=== PATIENT | female | born 1965 | race Caucasian/White ===

== ENCOUNTER 2016-06-24 16:45 | Inpatient (IN) | payer BC, OTHER ==
[2016-06-24] MEDS ORDERED: ONDANSETRON 4 MG/2 ML VIAL IVP ONE (17:08)
[2016-06-24] MEDS ORDERED: Sodium Chloride 0.9% 1,000 ML PRIMARY IV ONE (17:08)
[2016-06-24] MEDS ORDERED: NORMAL SALINE 10 ML SYRINGE FLUSH IVP PRN (17:08)
[2016-06-24] MEDS ORDERED: Sodium Chloride 0.9% 1,000 ML, Magnesium Sulfate 2gm (Premix) 50 ML with Multivitamin I... IV ONE ×5 (17:11)
[2016-06-24] MEDS ORDERED: Pantoprazole Inj 40 MG in Normal Saline Flush 10 ML IVP ONE (17:12)
--- NOTE | 2016-06-24 17:22 | EKG ---
[address] [place] [address] Measurements Intervals [place] Rate: 81 P: 127 IL: 194 QRS: 22 QRSD: 88 T: 165 QT: 375 QTc: 413 Interpretive Statements SINUS RHYTHM POSSIBLE LATERAL MYOCARDIAL INFARCTION [30 ms Q WAVE IN I/aVL/V5/V6], OF INDETERMINATE AGE PROBABLE INFERIOR MYOCARDIAL INFARCTION [35 ms Q WAVE IN II/aVF], PROBABLY OLD No previous ECG available for comparison Electronically Signed On 06-25-16 13:44:22 [facility] by Alexis Michelle [email or web address]
[2016-06-24] MEDS ORDERED: Magnesium Sulfate 2gm (Premix) 50 ML IV ONE (17:27)
[2016-06-24] MEDS ORDERED: FOLIC ACID 5 MG/1 ML - 10 ML ONE (17:27)
[2016-06-24] MEDS ORDERED: ONDANSETRON 4 MG/2 ML VIAL ONE (17:27)
[2016-06-24] MEDS ORDERED: Sodium Chloride 0.9% 1,000 ML ONE ×2 (17:27→17:45)
[2016-06-24] MEDS ORDERED: Dexamethasone Oral Soln 10 MG/5 ML SOLN PO ONE (17:27)
[2016-06-24] MEDS ORDERED: THIAMINE 100 MG/1 ML - 2 ML ONE (17:27)
[2016-06-24] MEDS ORDERED: PANTOPRAZOLE IV 40 MG VIAL ONE (17:27)
[2016-06-24] MEDS ORDERED: MVI, ADULT NO.1 WITH VIT K 10 ML VIAL IV ONE (17:28)
[2016-06-24 17:37] LABS: MEAN PLATELET VOLUME 8.3 FL (7.4-12.2)
[2016-06-24 17:39] LABS: BASOPHILS # (AUTO) 0.11 10*3/UL; BASOPHILS % (AUTO) 2.7 % (0-1); EOSINOPHILS % (AUTO) 0 % (0-8); HEMATOCRIT 40.7 % (37.0-47.0); HEMOGLOBIN 13.8 g/dL (12.0-16.0); IMM GRAN % (AUTO) 0.2 % (0-5); IMM GRAN# (AUTO) 0.01 10*3/UL; LYMPHOCYTES # (AUTO) 1.18 10*3/uL; LYMPHOCYTES % (AUTO) 29.1 % (10-50); MEAN CORPUSCULAR HEMOGLOBIN 33.3 PG (27-31); MEAN CORPUSCULAR HGB CONC 33.9 g/dL (33-37); MONOCYTES # (AUTO) 0.25 10*3/UL (0.3-0.8); MONOCYTES % (AUTO) 6.2 % (5-15); NEUTROPHILS # (AUTO) 2.51 10*3/UL; NEUTROPHILS % (AUTO) 61.8 % (50-80); RDW COEFFICIENT OF VARIATION 15.4 % (11.5-14.5); RED BLOOD COUNT 4.15 10^6/uL (4.20-5.40); WHITE BLOOD COUNT 4.06 10^3/uL (4.8-10.8)
[2016-06-24 17:40] LABS: AMYLASE 81 U/L (30-110)
[2016-06-24 17:41] LABS: AMMONIA < 9 UMOL/L (9.0-33.0)
[2016-06-24 17:47] LABS: PROTHROMBIN TIME 10.9 secs (9.7-11.4)
[2016-06-24 17:52] LABS: ASPARTATE AMINO TRANSFERASE 192 IU/L (8-39); BILIRUBIN,TOTAL 0.7 mg/dL (0.3-1.2); BLOOD UREA NITROGEN 9 mg/dL (7-22); CALCIUM 8.2 mg/dL (8.7-10.7); CHLORIDE 103 meq/L (98-112); CREATININE 0.6 mg/dL (0.50-1.20); EST GLOMERULAR FILTRATION > 60 (>60 ml/min/1.73m(2)); GLUCOSE 75 mg/dL (78-110); MAGNESIUM 1.8 mg/dL (1.6-2.4); POTASSIUM 3.4 meq/L (3.8-5.2); SODIUM 147 meq/L (135-145)
[2016-06-24 18:04] LABS: PLATELET MORPHOLOGY COMMENT SEE COMMENTS (NORM)
[2016-06-24 18:06] LABS: SERUM ALCOHOL 466 mg/dL (0-10)
--- NOTE | 2016-06-24 18:49 | PDOC ---
General Adult HPI - General Chief Complaint: Fall Stated Complaint: slurred speech may have fallen Date Seen by Provider: 06/24/16 Time Seen by Provider: 16:50 Source: POSITIVE: Patient, Spouse Exam Limitations: POSITIVE: No limitations Nurse's Notes Reviewed & Considered: Yes - History of Present Illness Initial Comment: The patient is a 50-year-old female who is brought to the emergency department by her significant other with concerns about slurred speech and balance difficulties. She does have a history of alcohol abuse and by her account has been drinking approximately a pint per day. She states that she has not had anything to drink over the past 5 days and has been taking her 's naltrexone to help with alcohol cravings. Her reports that when he came home he found her lying on a bench in the garage where he is seen she might of been smoking. He is unsure whether she fell. The patient denies falling although she does not seem clear about this. Her became concerned when it was apparent that she was having balance issues and slurred speech. She has obvious bruising to her left arm, and left leg. By the patient 's account she has had nausea and vomiting as well as some epigastric abdominal pain for the past couple of weeks. She states she has had a difficult time eating or drinking anything and states that she does not have an appetite. She admits to having a poor appetite in general as well as poor food intake when she is drinking. She also has been complaining of pain in the right scapular region for a couple of weeks. She denies any current headache or chest pain. She does have upper abdominal pain and nausea. By her account she was seen in the clinic several days ago and diagnosed with a "stomach flu". She denies any blood in her emesis or stool and denies black stool. She has been having diarrhea in addition to nausea and vomiting. Have you received a tetanus shot in the past 10 years?: Unknown - Patient Home Medications Home Medications: Home Medications Clonazepam 1 tab PO BID tab 10/26/15 Bupropion HCl [Wellbutrin Xl] 1 tab PO DAILY tab 12/01/15 Naltrexone HCl 0.5 tab PO DAILY 06/24/16 - Patient Allergies Allergies/Adverse Reactions: Allergies Allergy/AdvReac Type Severity Reaction Status Date / Time Influenza Virus Vaccines Allergy Severe NOT Verified 06/24/16 21:06 APPLICABLE acetaminophen [From Tylenol] Allergy Intermediate RASH Verified 06/24/16 21:06 banana Allergy NOT Verified 06/24/16 21:06 APPLICABLE chicken derived Allergy NOT Verified 06/24/16 21:06 APPLICABLE corn Allergy NOT Verified 06/24/16 21:06 APPLICABLE egg Allergy NOT Verified 06/24/16 21:06 APPLICABLE garlic Allergy NOT Verified 06/24/16 21:06 APPLICABLE kiwi Allergy NOT Verified 06/24/16 21:06 APPLICABLE oats Allergy NOT Verified 06/24/16 21:06 APPLICABLE wheat Allergy NOT Verified 06/24/16 21:06 APPLICABLE Past Medical History - heen HEENT History: Denies History Cardiovascular History: Arrhythmia, Other (please comment) Additional Cardiovasular History: cardiac ablation Respiratory History: Other (please comment) Additional Respiratory History: smoker Gastrointestinal History: Denies History Genitourinary History: Denies History Endocrine History: Other (please comment) Additional Endocrine History: hypoglycemia Musculoskeletal History: Other (please comment) Additional Musculoskeletal History: Back surgery Neurological History: Denies History Blood Disorders: Denies History Psychiatric History: Depression, Anxiety Disorders, Substance Abuse Additional Psychiatric History: alcoholism History of Sexually Transmitted Diseases: No Cancer History: Denies History In Past Year Been Physically Harmed or Verbally Threatened: No History of MDRO: No History of Other Communicable Diseases: No Tobacco Use: Current Every Day Smoker Alcohol Use: Heavy How much alcohol do you normally drink a day?: 1 pint hard liquor "every 2-3 days" Substance Use Type: Marijuana Previous Surgical History: Yes Type / Date of Surgery: CSECTION. C5-7 FUSION WITH C7 FX REPAIR AND FUSED TO T1 Anesthesia Reactions: No Significant Family History: No pertinent family hx Past Medical History Reviewed: Reviewed - No Changes ROS - Limitations ROS Limitations: No Limitations Constitution: DENIES: Chills, Fever Cardiovascular: DENIES: Chest Pain, Heart Racing, Heart Palpitations, Edema Respiratory: DENIES: Hurts To Breathe, Shortness Of Breath Neurological: REPORTS: Confusion, Dizziness, Difficulty Walking. DENIES: Numbness, Seizure Activity, Weakness Gastrointestinal: REPORTS: Abdominal Pain, Nausea, Vomitting, Diarrhea. DENIES : Black Stools, Bloody Stools Genitourinary: REPORTS: Denies Symptoms Eyes: REPORTS: Denies Symptoms, Vision Changes (Some blurred vision) ENT: REPORTS: Denies Symptoms General Adult Exam - General Appearance General Appearance: POSITIVE: Alert, Cooperative, No Acute Distress - HEENT HEENT: POSITIVE: Head Inspection Nml, Eyes Inspection Nml, Ears Inspection Nml, Nose Inspection Nml, Pharynx Inspect. Nml, Dry Mucous Membranes - Neck Neck: POSITIVE: Normal Inspection. NEGATIVE: Lymphadenopathy - Respiratory Respiratory: POSITIVE: No Respiratory Distress, Breath Sounds Normal - Cardiovascular Cardiovascular: POSITIVE: Regular Rate & Rhythm, No Murmur Peripheral Pulses: Dorsalis-pedis (R): 2+, Dorsalis-pedis (L): 2+ - Abdomen Abdomen: Soft: (All Quadrants), Normal Bowel Sounds: (All Quadrants), No Guarding: (All Quadrants), No Rebound: (All Quadrants), No Palpabale Mass: (All Quadrants), No Distention: (All Quadrants) Additional Abdominal Details: She is tender in the epigastric region without guarding or rebound tenderness. - Back Back: POSITIVE: Normal Inspection - Skin Skin: POSITIVE: Normal Color - Extremities Additional Extremities Details: She does have large bruises noted on her left upper arm and left upper leg, she has tenderness to the posterior aspect of her right shoulder and pain with range of motion of the right shoulder - Neurological / Psychological Neurological: POSITIVE: Oriented X3, Motor Normal, Sensation Normal, Other (No focal neurologic deficits) General Adult Progress - Results Reviewed by me Xrays/CTs/US Reviewed by me: Yes Discussed with Radiologist: Yes Radiology Findings: CT scan of her head reveals no acute intracranial findings per radiologist. X-ray of the right shoulder is unremarkable except for what appears to be calcification in the biceps tendon. Chest x-ray shows no acute abnormalities. Lab Results:: Laboratory Results 06/24/16 Range/Units 17:27 WBC 4.06 L (4.8-10.8) 10^3/uL RBC 4.15 L (4.20-5.40) 10^6/uL Hgb 13.8 (12.0-16.0) g/dL Hct 40.7 (37.0-47.0) % MCV 98.1 (81-99) FL MCH 33.3 H (27-31) PG MCHC 33.9 (33-37) g/dL RDW Std Deviation 54.5 H (39-50) fL RDW Coeff of Deshawn 15.4 H (11.5-14.5) % Plt Count 90 L (140-350) 10*3/uL MPV 8.3 (7.4-12.2) FL Immature Gran % (Auto) 0.2 (0-5) % Neut % (Auto) 61.8 (50-80) % Lymph % (Auto) 29.1 (10-50) % [place] % (Auto) 6.2 (5-15) % Eos % (Auto) 0 (0-8) % Baso % (Auto) 2.7 H (0-1) % Immature Gran # (Auto) 0.01 10*3/UL Neut # (Auto) 2.51 10*3/UL Lymph # (Auto) 1.18 10*3/uL [place] # (Auto) 0.25 L (0.3-0.8) 10*3/UL Eos # (Auto) 0 10*3/UL Baso # (Auto) 0.11 10*3/UL WBC Morphology Comment Normal morphology (NORM) Plt Morphology Comment See comments (NORM) RBC Morph Comment See comments (NORM) PT 10.9 (9.7-11.4) secs INR 1.06 (0.00-5.90) N/A Sodium 147 H (135-145) meq/L Potassium 3.4 L (3.8-5.2) meq/L Chloride 103 (98-112) meq/L Carbon Dioxide 25 (23-33) meq/L Anion Gap 19 (5-20) BUN 9 (7-22) mg/dL Creatinine 0.6 (0.50-1.20) mg/dL Estimated GFR > 60 (>60 ml/min/1.73m(2)) BUN/Creatinine Ratio 15.00 (6-20) Glucose 75 L (78-110) mg/dL Calculated Osmolality 301.0 H (267-292) mOsm/kg Calcium 8.2 L (8.7-10.7) mg/dL Magnesium 1.8 (1.6-2.4) mg/dL Total Bilirubin 0.7 (0.3-1.2) mg/dL AST 192 H (8-39) IU/L ALT 74 H (9-52) IU/L Alkaline Phosphatase 117 (38-126) IU/L Ammonia < 9 L (9.0-33.0) UMOL/L Troponin I < 0.012 (< 0.040) ng/mL Total Protein 7.0 (6.1-8.0) g/dL Albumin 4.0 (3.5-4.8) g/dL Globulin 3.0 (2.50-4.10) g/dL Albumin/Globulin Ratio 1.30 (1.3-2.0) mg/g Amylase 81 (30-110) U/L Lipase 301 H (23-300) IU/L Serum Alcohol 466 H* (0-10) mg/dL EKG Interpreted/Reviewed By Me:: Yes EKG Interpretation:: POSITIVE: Normal Sinus Rhythm, Normal Rate, Other (No previous EKGs available for comparison) - Patient's Progress MDM / ED Course: An IV was established and she did receive a banana bag. In addition she received Protonix 40 mg IV and Zofran 4 mg IV. Because of her recent falls and complaints of slurred speech and balance difficulty as well as reportedly not drinking for the past 5 days I did order a CT scan of her head. This was found to be negative for any acute intracranial abnormality per radiologist. Her blood alcohol was significantly elevated at 466. In addition her lipase was elevated. At this point she likely has alcoholic pancreatitis causing her epigastric abdominal pain, nausea and vomiting. These findings were discussed with the patient. At this time she will be admitted. Dr. Hardy has agreed to admit the patient. - Consult Counseled: POSITIVE: Patient, Family, RE: Lab Results, RE: Radiology Results, RE : DX Patient Care Time - Estimated PCT Patient Care Time (In Minutes): 45 Vital Signs - Recent Vital Signs Vital Signs: Vital Signs (Last 8 hours) Temp Pulse Resp BP Pulse Ox 06/24/16 19:45 96.8 F 88 18 123/77 94 - VS Reviewed Vital Signs Reviewed: Yes Discharge Clinical Impression: Thrombocytopenia Pancreatitis Qualifiers: Chronicity: acute Pancreatitis type: alcohol induced Acute pancreatitis complication: no infection or necrosis Qualifier Code: (K85.20) Alcohol induced acute pancreatitis without necrosis or infection Alcohol intoxication Qualifiers: Complication of substance-induced condition: with unspecified complication Qualifier Code: (F10.129) Alcohol abuse with intoxication, unspecified Discharge Disposition: Admit to Inpatient Condition: Stable Date Decision to Admit to Inpatient: 06/24/16 Time Decision to Admit to Inpatient: 19:10
[2016-06-24] MEDS ORDERED: ACETAMINOPHEN 500 MG TABLET PO PRN (20:01)
[2016-06-24] MEDS ORDERED: MAG HYDROX/AL HYDROX/SIMETH 30 ML SUSP PO PRN (20:01)
[2016-06-24] MEDS ORDERED: ONDANSETRON 4 MG/2 ML VIAL IV PRN (20:01)
[2016-06-24] MEDS ORDERED: Loperamide Tab 2 MG TABLET PO PRN (20:01)
[2016-06-24] MEDS ORDERED: MAGNESIUM 400 MG/5 ML - 30 ML (MILK OF MAGNESIA) PO PRN (20:01)
--- NOTE | 2016-06-24 20:26 | PDOC ---
History and Physical - History of Present Illness Date and Time of Service: 06/24/2016, 2024 Chief Complaint: Altered mental status History of Present Illness: This is a 50-year-old female who has had problems with alcohol abuse in the past who was brought in by her today to the emergency room when he found her at home altered and sitting in the garage. He thinks that she may have fallen and she was slurring some of her words. She was brought in for evaluation and her blood alcohol was 466. She complained of nausea and vomiting and back pain yesterday and a lipase was found to be elevated at 301. The patient states to me that she's been drinking a pint of vodka per day although I suspect she's been drinking more. She was under the impression that she asked her to bring her to the emergency room. She did not recall that he found her in an altered state. The patient has been doing intensive outpatient therapy with [facility] since around February. She states that she's had some episodes of alcohol use since she's been in the intensive outpatient program, including over the holidays and currently. She's gone through withdrawals at home but has never been admitted to the hospital for this. She states she drinks because she's angry at some of the staff that she works with at her job. No exacerbating factors were noted other than she continued to drink to a blood alcohol of 466. She did this despite using naltrexone. She missed a depression, has tried Celexa and it doesn't seem to work. She has been on Wellbutrin since October but has not noticed that it helps a lot. She smokes tobacco but denies any other drug use. Past Medical History Medical History: Alcohol abuse Surgical History: 1. . 2. Neck Surgery with hardware present. Pertinent Family History: Further with heart disease and mother with diabetes. Past Social History: Lives in [place], [place]. . Has 5 children, 2 still live at home. 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 Drinks alcohol and smokes tobacco. Tobacco Use: Current Every Day Smoker Do you dip or chew tobacco: No Substance Use Type: Other (please comment) (Patient denied drug use.) Alcohol Use: Heavy Medication / Allergies Home Medications: Home Medications Medication Instructions Recorded Confirmed Type Clonazepam 1 tab PO BID tab 10/26/15 06/24/16 History Bupropion HCl [Wellbutrin Xl] 1 tab PO DAILY tab 12/01/15 06/24/16 History Naltrexone HCl 0.5 tab PO DAILY 06/24/16 06/24/16 History Allergies/Adverse Reactions: Allergies Allergy/AdvReac Type Severity Reaction Status Date / Time Influenza Virus Vaccines Allergy Severe NOT Verified 06/24/16 17:01 APPLICABLE acetaminophen [From Tylenol] Allergy Intermediate RASH Verified 06/24/16 17:01 banana Allergy NOT Verified 06/24/16 17:01 APPLICABLE chicken derived Allergy NOT Verified 06/24/16 17:01 APPLICABLE corn Allergy NOT Verified 06/24/16 17:01 APPLICABLE egg Allergy NOT Verified 06/24/16 17:01 APPLICABLE garlic Allergy NOT Verified 06/24/16 17:01 APPLICABLE kiwi Allergy NOT Verified 06/24/16 17:01 APPLICABLE oats Allergy NOT Verified 06/24/16 17:01 APPLICABLE wheat Allergy NOT Verified 06/24/16 17:01 APPLICABLE Review of Systems - Review of Systems All Systems: Reviewed & No Additional Complaints Except as Stated (I did a 12 point review systems and it was negative other than that discussed in history present illness. There are some exceptions noted below.) - Constitutional Constitutional: REPORTS: Other (Frequent falls in her intoxicated states.) - Integumentary Integumentary: REPORTS: Other (Bruising on arm and leg.) Exam - Vitals Vital Signs: Vital Signs Temperature 96.8 F Temperature Source Temporal Artery Scan Pulse Rate [Pulse Oximeter] 88 Respiratory Rate 18 Blood Pressure [Left Arm] 123/77 Pulse Ox 94 Oxygen Delivery Method Room Air Weight 148 lb 1.6 oz - General General Appearance: POSITIVE: No Acute Distress, Cooperative - Head Head Exam: POSITIVE: Normal Inspection, Normocephalic, Atraumatic - Eye Eye Exam: POSITIVE: No Scleral Icterus - ENT ENT Exam: POSITIVE: Mucous Membranes Dry - Neck Neck Exam: POSITIVE: Normal Inspection, No Tenderness, No Thyromegaly - Respiratory Respiratory Exam: POSITIVE: Clear to Auscultation - Bilaterally, Breathing Non Labored, Normal to Percussion and Palpation - Cardiovascular Cardiovascular Exam: POSITIVE: RRR, No Murmur, No Clicks, No Gallops, No Rubs, No JVD - GI/Abdominal GI/Abdominal Exam: POSITIVE: Normal Bowel Sounds, Non Tender, Non Distended, Soft - Rectal Rectal Exam: POSITIVE: Deferred - External Exam: POSITIVE: Deferred Exam: POSITIVE: Deferred - Extremities Extremities Exam: POSITIVE: No Clubbing Present, No Edema Present, No Cyanosis Present - Back Back Exam: POSITIVE: No CVA Tenderness - Neurological Neurological Exam: POSITIVE: Alert, Oriented x 3, No Facial Droop, Speech Intact / Clear, Moves All Extremities Equally - Psychiatric Psychiatric Exam: POSITIVE: Flat Affect, Depressed - Integumentary Integumentary Exam: POSITIVE: Normal Color, Warm, Dry, Intact Additional Integumentary Exam Details: Ecchymosis on left arm noted. Results - Labs CBC and BMP: 06/24/16 17:27 06/24/16 17:27 Labs - Last 24 Hours: Laboratory Results 06/24/16 Range/Units 17:27 WBC 4.06 L (4.8-10.8) 10^3/uL RBC 4.15 L (4.20-5.40) 10^6/uL Hgb 13.8 (12.0-16.0) g/dL Hct 40.7 (37.0-47.0) % MCV 98.1 (81-99) FL MCH 33.3 H (27-31) PG MCHC 33.9 (33-37) g/dL RDW Std Deviation 54.5 H (39-50) fL RDW Coeff of Deshawn 15.4 H (11.5-14.5) % Plt Count 90 L (140-350) 10*3/uL MPV 8.3 (7.4-12.2) FL Immature Gran % (Auto) 0.2 (0-5) % Neut % (Auto) 61.8 (50-80) % Lymph % (Auto) 29.1 (10-50) % [place] % (Auto) 6.2 (5-15) % Eos % (Auto) 0 (0-8) % Baso % (Auto) 2.7 H (0-1) % Immature Gran # (Auto) 0.01 10*3/UL Neut # (Auto) 2.51 10*3/UL Lymph # (Auto) 1.18 10*3/uL [place] # (Auto) 0.25 L (0.3-0.8) 10*3/UL Eos # (Auto) 0 10*3/UL Baso # (Auto) 0.11 10*3/UL WBC Morphology Comment Normal morphology (NORM) Plt Morphology Comment See comments (NORM) RBC Morph Comment See comments (NORM) PT 10.9 (9.7-11.4) secs INR 1.06 (0.00-5.90) N/A Sodium 147 H (135-145) meq/L Potassium 3.4 L (3.8-5.2) meq/L Chloride 103 (98-112) meq/L Carbon Dioxide 25 (23-33) meq/L Anion Gap 19 (5-20) BUN 9 (7-22) mg/dL Creatinine 0.6 (0.50-1.20) mg/dL Estimated GFR > 60 (>60 ml/min/1.73m(2)) BUN/Creatinine Ratio 15.00 (6-20) Glucose 75 L (78-110) mg/dL Calculated Osmolality 301.0 H (267-292) mOsm/kg Calcium 8.2 L (8.7-10.7) mg/dL Magnesium 1.8 (1.6-2.4) mg/dL Total Bilirubin 0.7 (0.3-1.2) mg/dL AST 192 H (8-39) IU/L ALT 74 H (9-52) IU/L Alkaline Phosphatase 117 (38-126) IU/L Ammonia < 9 L (9.0-33.0) UMOL/L Troponin I < 0.012 (< 0.040) ng/mL Total Protein 7.0 (6.1-8.0) g/dL Albumin 4.0 (3.5-4.8) g/dL Globulin 3.0 (2.50-4.10) g/dL Albumin/Globulin Ratio 1.30 (1.3-2.0) mg/g Amylase 81 (30-110) U/L Lipase 301 H (23-300) IU/L Serum Alcohol 466 H* (0-10) mg/dL - EKG Data -: EKG Interpreted by Me Rate: Normal EKG Shows Normal: Sinus Rhythm - EKG Data EKG Interpretation: Nonspecific ST-T Wave Changes (T-wave inversions in V3.) - Imaging Status: Image Reviewed by Me (Chest x-ray, on my view appears negative for pneumonia or fracture. CT of the head appeared negative for bleed) Assessment and Plan - Patient Problems (1) Pancreatitis Current Visit: Yes Status: Acute Qualifiers: Chronicity: acute Pancreatitis type: alcohol induced Acute pancreatitis complication: no infection or necrosis Qualified Description: Alcohol-induced acute pancreatitis without infection or necrosis Qualifier Code(s): (K85.20) Alcohol induced acute pancreatitis without necrosis or infection (2) Alcohol intoxication Current Visit: Yes Status: Acute Qualifiers: Complication of substance-induced condition: with unspecified complication Qualified Description: Alcoholic intoxication, with unspecified complication Qualifier Code(s): (F10.129) Alcohol abuse with intoxication , unspecified (3) Falls Current Visit: Yes Status: Acute Qualifiers: Encounter type: initial encounter Qualified Description: Fall, initial encounter Qualifier Code(s): (W19.XXXA) Unspecified fall, initial encounter (4) Depression Current Visit: Yes Status: Acute Qualifiers: Depression Type: major depressive disorder Major depression recurrence : single episode Active/Remission status: currently active Major depression episode severity: severe Psychotic features: without psychotic features Qualified Description: Severe single current episode of major depressive disorder, without psychotic features Qualifier Code(s): (F32.2 ) Major depressive disorder, single episode, severe without psychotic features (5) Tobacco abuse Current Visit: Yes Status: Acute (6) Hypokalemia Current Visit: Yes Status: Acute (7) Thrombocytopenia Current Visit: Yes Status: Acute - Assessment / Plan Additional Assessment/Plan Details: Admit the patient CIWA protocol. IV fluids, thiamine replacement, electrolyte replacement Get solutions for life to evaluate but she sounds like she is artery tied into CW cc, and I think in that setting she really should do their inpatient therapy as she is clearly not being compliant with her outpatient plan. Keep nothing by mouth for now although I will let her eat some ice chips. Check labs tomorrow. Overall prognosis is not clear at this point, it really depends on whether she can quit alcohol so that she can avoid complications medically, socially, and personally from this disease process. Although I truly do believe that the patient has some intent here to get better, if she continues down this path, she is likely to develop cirrhosis, other complications as she has thrombocytopenia, elevated liver enzymes, and could very well of alcoholism related diseases should she continued on this process and road. I explained this to her in detail. Plan discussed with patient and she agreed with the therapy.
[2016-06-24] MEDS ORDERED: Potassium Chloride 20 mEq 20 MEQ in Premix 1 BAG IV ONE (20:33)
[2016-06-24] MEDS ORDERED: NICOTINE 14 MG /DAY PATCH TRANSDERM ONE (22:12)
[2016-06-24] MEDS ORDERED: MAGNESIUM OXIDE 400 MG TABLET PO ONE (22:12)
[2016-06-24] MEDS ORDERED: Potassium Chloride 20 mEq 100 ML IV ONE (22:13)
[2016-06-24] MEDS: MAGNESIUM OXIDE 400 MG TABLET PO SCH (22:16)
[2016-06-24] MEDS: NICOTINE 14 MG /DAY PATCH TRANSDERM SCH (22:17)
[2016-06-24] MEDS: NORMAL SALINE 10 ML SYRINGE FLUSH IVP PRN (22:19)
[2016-06-24 23:15] LABS: CANNABINOID SCREEN,URINE NEGATIVE (NEG); COCAINE SCREEN NEGATIVE (NEG); METHAMPHETAMINES SCREEN,URINE NEGATIVE (NEG); URINE SAMPLE TYPE CLEAN CATCH URINE; URINE SPECIFIC GRAVITY - MAN 1.015
[2016-06-25] MEDS: NORMAL SALINE 10 ML SYRINGE FLUSH IVP PRN ×3 (02:52→06:15)
[2016-06-25] MEDS ORDERED: DIAZEPAM 10 MG/2 ML (5 MG/1 ML) CARPUJECT ONE ×7 (02:52→15:05)
[2016-06-25] MEDS: Diazepam Inj (ETOH withdrawal)10 MG/2 ML CARPUJECT IVP PRN ×11 (02:53→23:32)
[2016-06-25 06:38] LABS: BASOPHILS # (AUTO) 0.06 10*3/UL; BASOPHILS % (AUTO) 1.2 % (0-1); EOSINOPHILS % (AUTO) 0.4 % (0-8); HEMATOCRIT 33.8 % (37.0-47.0); HEMOGLOBIN 11.1 g/dL (12.0-16.0); IMM GRAN % (AUTO) 0.2 % (0-5); IMM GRAN# (AUTO) 0.01 10*3/UL; LYMPHOCYTES # (AUTO) 1.01 10*3/uL; LYMPHOCYTES % (AUTO) 20.9 % (10-50); MEAN CORPUSCULAR HEMOGLOBIN 33.5 PG (27-31); MEAN CORPUSCULAR HGB CONC 32.8 g/dL (33-37); MEAN PLATELET VOLUME 8.9 FL (7.4-12.2); MONOCYTES # (AUTO) 0.32 10*3/UL (0.3-0.8); MONOCYTES % (AUTO) 6.6 % (5-15); NEUTROPHILS # (AUTO) 3.41 10*3/UL; NEUTROPHILS % (AUTO) 70.7 % (50-80); RDW COEFFICIENT OF VARIATION 15.4 % (11.5-14.5); RED BLOOD COUNT 3.31 10^6/uL (4.20-5.40); WHITE BLOOD COUNT 4.83 10^3/uL (4.8-10.8)
[2016-06-25 06:47] LABS: ASPARTATE AMINO TRANSFERASE 158 IU/L (8-39); BILIRUBIN,TOTAL 0.9 mg/dL (0.3-1.2); BLOOD UREA NITROGEN 7 mg/dL (7-22); BUN/CREATININE RATIO 11.66 (6-20); CALCIUM 6.9 mg/dL (8.7-10.7); CHLORIDE 108 meq/L (98-112); CREATININE 0.6 mg/dL (0.50-1.20); EST GLOMERULAR FILTRATION > 60 (>60 ml/min/1.73m(2)); POTASSIUM 3.7 meq/L (3.8-5.2); SODIUM 145 meq/L (135-145); TOTAL PROTEIN 6.2 g/dL (6.1-8.0)
[2016-06-25 06:49] LABS: PLATELET MORPHOLOGY COMMENT NORMAL MORPHOLOGY (NORM)
[2016-06-25 07:02] LABS: GLUCOSE 40 mg/dL (78-110)
[2016-06-25] MEDS ORDERED: DEXTROSE 50%-WATER SYRINGE 50 ML SYRINGE ONE (07:09)
[2016-06-25] MEDS ORDERED: DEXTROSE 50%-WATER SYRINGE 50 ML SYRINGE IVP ONE (07:14)
--- NOTE | 2016-06-25 07:55 | PDOC(PROG) ---
Date and Time of Service: 06/25/2016 7:30 AM Interval History: Subjective Patient was brought to the hospital because of alteration in mental status. She was found to have a blood alcohol level of 466. She said that she been drinking heavily since her neck surgery back in October then in February she went to outpatient treatment and she was sober until she said the holidays, she was seeing them 3 times a week and the last time she saw them was back in April. She started drinking again as I said since the holidays although she did not say specifically when, she is denying complaints except she is having the shakes. She denied other medical issues. She said she doesn't go into withdrawal if she quit drinking. She's been drinking maybe a pint of vodka. She denied nausea or vomiting or abdominal pain or back pain. She is hungry. She did say that is been having hypoglycemia at home for years especially in the morning. Objective : Data - Labs CBC and BMP: 06/25/16 06:24 06/25/16 06:24 Labs - Last 24 Hours: Laboratory Results 06/24/16 06/25/16 Range/Units 23:10 06:24 WBC 4.83 (4.8-10.8) 10^3/uL RBC 3.31 L (4.20-5.40) 10^6/uL Hgb 11.1 L (12.0-16.0) g/dL Hct 33.8 L (37.0-47.0) % MCV 102.1 H (81-99) FL MCH 33.5 H (27-31) PG MCHC 32.8 L (33-37) g/dL RDW Std Deviation 56.2 H (39-50) fL RDW Coeff of Deshawn 15.4 H (11.5-14.5) % Plt Count 64 L (140-350) 10*3/uL MPV 8.9 (7.4-12.2) FL Immature Gran % (Auto) 0.2 (0-5) % Neut % (Auto) 70.7 (50-80) % Lymph % (Auto) 20.9 (10-50) % Riley % (Auto) 6.6 (5-15) % Eos % (Auto) 0.4 (0-8) % Baso % (Auto) 1.2 H (0-1) % Immature Gran # (Auto) 0.01 10*3/UL Neut # (Auto) 3.41 10*3/UL Lymph # (Auto) 1.01 10*3/uL Riley # (Auto) 0.32 (0.3-0.8) 10*3/UL Eos # (Auto) 0.02 10*3/UL Baso # (Auto) 0.06 10*3/UL WBC Morphology Comment Normal morphology (NORM) Plt Morphology Comment Normal morphology (NORM) RBC Morph Comment Normal morphology (NORM) PT 11.0 (9.7-11.4) secs INR 1.07 (0.00-5.90) N/A Sodium 145 (135-145) meq/L Potassium 3.7 L (3.8-5.2) meq/L Chloride 108 (98-112) meq/L Carbon Dioxide 18 L (23-33) meq/L Anion Gap 19 (5-20) BUN 7 (7-22) mg/dL Creatinine 0.6 (0.50-1.20) mg/dL Estimated GFR > 60 (>60 ml/min/1.73m(2)) BUN/Creatinine Ratio 11.66 (6-20) Glucose 40 L* (78-110) mg/dL Calculated Osmolality 294.0 H (267-292) mOsm/kg Calcium 6.9 L (8.7-10.7) mg/dL Magnesium 2.0 (1.6-2.4) mg/dL Total Bilirubin 0.9 (0.3-1.2) mg/dL AST 158 H (8-39) IU/L ALT 58 H (9-52) IU/L Alkaline Phosphatase 97 (38-126) IU/L Total Protein 6.2 (6.1-8.0) g/dL Albumin 3.4 L (3.5-4.8) g/dL Globulin 2.8 (2.50-4.10) g/dL Albumin/Globulin Ratio 1.20 L (1.3-2.0) mg/g Lipase 210 (23-300) IU/L Ur Collection Type Clean catch urine U Specif Grav (Refrac) 1.015 Urine Opiates Screen Negative (NEG) Ur Buprenorphine Negative (NEG) Ur Oxycodone Screen Negative (NEG) Urine Methadone Screen Negative (NEG) Ur Propoxyphene Screen Negative (NEG) Barbiturate Screen Negative (NEG) U Tricyclic Antidepress Negative (NEG) Phencyclidine Screen Negative (NEG) Amphetamines Screen Negative (NEG) U Methamphetamines Scrn Negative (NEG) Benzodiazepines Screen Negative (NEG) Cocaine Screen Negative (NEG) U Marijuana (THC) Screen Negative (NEG) Objective : Exam - General General Appearance: No Acute Distress, Cooperative - Head Head Exam: Normal Inspection, Atraumatic - Eye Eye Exam: Normal Appearance - ENT ENT Exam: Normal Exam - Neck Neck Exam: Normal Inspection - Respiratory Respiratory Exam: Clear to Auscultation - Bilaterally - Cardiovascular Cardiovascular Exam: RRR - GI/Abdominal GI/Abdominal Exam: Normal Bowel Sounds, Non Tender, Non Distended, Soft - Rectal Rectal Exam: Deferred - External Exam: Deferred - Extremities Extremities Exam: Normal Inspection Additional Extremities Exam Details: Some tremor noted in the hands - Back Back Exam: Normal Inspection - Neurological Neurological Exam: Alert, Oriented x 3, CN II-XII Intact, Speech Intact / Clear , Moves All Extremities Equally - Psychiatric Psychiatric Exam: Normal Affect - Integumentary Integumentary Exam: Normal Color Assessment and Plan - Patient Problems (1) Alcohol intoxication Current Visit: Yes Status: Acute Comment: Continue supportive care. Consult solution for life. Continue fluids and multivitamins. CIWA protocol is written in case she goes into withdrawal. Qualifiers: Complication of substance-induced condition: with unspecified complication Qualified Description: Alcoholic intoxication, with unspecified complication Qualifier Code(s): (F10.129) Alcohol abuse with intoxication , unspecified (2) Pancreatitis Current Visit: Yes Status: Acute Comment: Lipase was elevated yesterday however it was normal today. There is no symptoms of abdominal pain or back pain at least today. She denied symptoms of nausea and vomiting although that was reported to the ER yesterday. I think we can start feeding her and advance gradually. Qualifiers: Chronicity: acute Pancreatitis type: alcohol induced Acute pancreatitis complication: no infection or necrosis Qualified Description: Alcohol-induced acute pancreatitis without infection or necrosis Qualifier Code(s): (K85.20) Alcohol induced acute pancreatitis without necrosis or infection (3) Hypokalemia Current Visit: Yes Status: Acute Comment: Continue replacement. (4) Thrombocytopenia Current Visit: Yes Status: Acute Comment: Probably related to the alcohol, she is on multivitamins. We will repeat tomorrow. (5) Elevated liver enzymes Current Visit: No Status: Acute Comment: Likely related to alcohol. We'll check a hepatitis screen tomorrow (6) Hypoglycemia Current Visit: Yes Status: Acute Comment: Blood sugar was low today, will add the glucose to the fluid. (7) Increased anion gap metabolic acidosis Current Visit: Yes Status: Acute Comment: Probably related to alcoholic ketoacidosis. We will add D5 to the fluid. She did get the thiamine yesterday
[2016-06-25] MEDS: D5-NS + 20mEq KCL 1,000 ML PRIMARY IV SCH ×3 (08:00→23:36)
[2016-06-25] MEDS ORDERED: D5-NS + 20mEq KCL 1,000 ML PRIMARY IV ONE ×2 (08:00→15:24)
[2016-06-25] MEDS ORDERED: THIAMINE 100 MG/1 ML - 2 ML IM SCH (09:00)
[2016-06-25] MEDS ORDERED: Pantoprazole Inj 40 MG in Normal Saline Flush 10 ML IVP SCH (09:00)
[2016-06-25] MEDS: NICOTINE 14 MG /DAY PATCH TRANSDERM SCH (09:09)
[2016-06-25] MEDS ORDERED: FOLIC ACID 1 MG TABLET PO ONE (09:11)
[2016-06-25] MEDS ORDERED: NICOTINE 14 MG /DAY PATCH TRANSDERM ONE (09:11)
[2016-06-25] MEDS: MAGNESIUM OXIDE 400 MG TABLET PO SCH ×2 (09:12→21:11)
[2016-06-25] MEDS: PANTOPRAZOLE 40 MG TABLET PO SCH (09:12)
[2016-06-25] MEDS: FOLIC ACID 1 MG TABLET PO SCH (09:12)
[2016-06-25] MEDS ORDERED: MAGNESIUM OXIDE 400 MG TABLET PO ONE (09:12)
[2016-06-25] MEDS ORDERED: PANTOPRAZOLE 40 MG TABLET PO ONE (09:12)
[2016-06-25] MEDS ORDERED: THIAMINE 100 MG/1 ML - 2 ML ONE (09:13)
[2016-06-25] MEDS ORDERED: Diazepam Inj (ETOH withdrawal)10 MG/2 ML CARPUJECT ONE (17:12)
[2016-06-25] MEDS ORDERED: IBUPROFEN 400 MG TABLET PO PRN (20:39)
[2016-06-25] MEDS ORDERED: IBUPROFEN 400 MG TABLET PO ONE ×2 (21:13→21:18)
--- NOTE | 2016-06-25 22:07 | DI ---
PA /LATERAL CHEST X-RAY, 06/24/2016 5:08 PM : Clinical History: Status post fall Previous Exam: None at this facility. There is no acute soft tissue or bony abnormality. Heart size is normal. Lungs are clear. Mediastinal structures are normal. There are no pulmonary nodules. There is posterior fusion of the mid and lower cervical spine. There is also anterior fusion at these levels. IMPRESSION: No acute cardiopulmonary disease.
--- NOTE | 2016-06-25 22:09 | DI ---
XR SHOULDER MIN 2VW,06/24/2016 5:10 PM: Clinical History: Status post fall with right shoulder pain. Previous Exam: None at this facility. Findings: Multiple views of the right shoulder are obtained, and demonstrate some faint calcifications near the greater tubercle. The right chest wall and right lung are unremarkable. Impression: Calcifications involving the rotator cuff most consistent with calcific tendinitis.
[2016-06-26] MEDS: Diazepam Inj (ETOH withdrawal)10 MG/2 ML CARPUJECT IVP PRN ×11 (01:20→23:52)
[2016-06-26 07:08] LABS: BASOPHILS # (AUTO) 0.04 10*3/UL; BASOPHILS % (AUTO) 0.8 % (0-1); EOSINOPHILS % (AUTO) 1.1 % (0-8); HEMATOCRIT 37.2 % (37.0-47.0); HEMOGLOBIN 12.3 g/dL (12.0-16.0); IMM GRAN % (AUTO) 0.2 % (0-5); IMM GRAN# (AUTO) 0.01 10*3/UL; LYMPHOCYTES # (AUTO) 1.54 10*3/uL; LYMPHOCYTES % (AUTO) 32.6 % (10-50); MEAN CORPUSCULAR HEMOGLOBIN 33.2 PG (27-31); MEAN CORPUSCULAR HGB CONC 33.1 g/dL (33-37); MEAN PLATELET VOLUME 9.4 FL (7.4-12.2); MONOCYTES # (AUTO) 0.43 10*3/UL (0.3-0.8); MONOCYTES % (AUTO) 9.1 % (5-15); NEUTROPHILS # (AUTO) 2.65 10*3/UL; NEUTROPHILS % (AUTO) 56.2 % (50-80); RDW COEFFICIENT OF VARIATION 15.3 % (11.5-14.5); WHITE BLOOD COUNT 4.72 10^3/uL (4.8-10.8)
[2016-06-26 07:13] LABS: ASPARTATE AMINO TRANSFERASE 125 IU/L (8-39); BILIRUBIN,TOTAL 1.3 mg/dL (0.3-1.2); BLOOD UREA NITROGEN 4 mg/dL (7-22); BUN/CREATININE RATIO 6.66 (6-20); CALCIUM 8.2 mg/dL (8.7-10.7); CHLORIDE 106 meq/L (98-112); CREATININE 0.6 mg/dL (0.50-1.20); EST GLOMERULAR FILTRATION > 60 (>60 ml/min/1.73m(2)); GLUCOSE 120 mg/dL (78-110); POTASSIUM 3.1 meq/L (3.8-5.2); SODIUM 141 meq/L (135-145); TOTAL PROTEIN 6.6 g/dL (6.1-8.0)
[2016-06-26 07:27] LABS: PLATELET MORPHOLOGY COMMENT NORMAL MORPHOLOGY (NORM)
[2016-06-26] MEDS ORDERED: Diazepam 10 mg Tab (ETOH withdrawal) PO PRN (07:36)
--- NOTE | 2016-06-26 07:56 | PDOC(PROG) ---
Date and Time of Service: 06/26/2016 7:52 AM Interval History: Subjective Patient feels better today compared to yesterday, she still have the shakes, she still very weak. She did report that she fell at home once. She did report that she was hearing voices last night but not today. No visual hallucination. Objective : Data - Labs CBC and BMP: 06/26/16 06:05 06/26/16 06:05 Labs - Last 24 Hours: Laboratory Results 06/26/16 Range/Units 06:05 WBC 4.72 L (4.8-10.8) 10^3/uL RBC 3.70 L (4.20-5.40) 10^6/uL Hgb 12.3 (12.0-16.0) g/dL Hct 37.2 (37.0-47.0) % MCV 100.5 H (81-99) FL MCH 33.2 H (27-31) PG MCHC 33.1 (33-37) g/dL RDW Std Deviation 55.3 H (39-50) fL RDW Coeff of Deshawn 15.3 H (11.5-14.5) % Plt Count 55 L (140-350) 10*3/uL MPV 9.4 (7.4-12.2) FL Immature Gran % (Auto) 0.2 (0-5) % Neut % (Auto) 56.2 (50-80) % Lymph % (Auto) 32.6 (10-50) % [place] % (Auto) 9.1 (5-15) % Eos % (Auto) 1.1 (0-8) % Baso % (Auto) 0.8 (0-1) % Immature Gran # (Auto) 0.01 10*3/UL Neut # (Auto) 2.65 10*3/UL Lymph # (Auto) 1.54 10*3/uL [place] # (Auto) 0.43 (0.3-0.8) 10*3/UL Eos # (Auto) 0.05 10*3/UL Baso # (Auto) 0.04 10*3/UL WBC Morphology Comment Normal morphology (NORM) Plt Morphology Comment Normal morphology (NORM) RBC Morph Comment Normal morphology (NORM) Sodium 141 (135-145) meq/L Potassium 3.1 L (3.8-5.2) meq/L Chloride 106 (98-112) meq/L Carbon Dioxide 26 (23-33) meq/L Anion Gap 9 (5-20) BUN 4 L (7-22) mg/dL Creatinine 0.6 (0.50-1.20) mg/dL Estimated GFR > 60 (>60 ml/min/1.73m(2)) BUN/Creatinine Ratio 6.66 (6-20) Glucose 120 H (78-110) mg/dL Calculated Osmolality 289.0 (267-292) mOsm/kg Calcium 8.2 L (8.7-10.7) mg/dL Total Bilirubin 1.3 H (0.3-1.2) mg/dL AST 125 H (8-39) IU/L ALT 63 H (9-52) IU/L Alkaline Phosphatase 116 (38-126) IU/L Total Protein 6.6 (6.1-8.0) g/dL Albumin 3.6 (3.5-4.8) g/dL Globulin 3.0 (2.50-4.10) g/dL Albumin/Globulin Ratio 1.20 L (1.3-2.0) mg/g Objective : Exam - General General Appearance: No Acute Distress, Cooperative - Head Head Exam: Normal Inspection - Eye Eye Exam: Normal Appearance - Neck Neck Exam: Normal Inspection - Respiratory Respiratory Exam: Clear to Auscultation - Bilaterally - Cardiovascular Cardiovascular Exam: RRR - GI/Abdominal GI/Abdominal Exam: Normal Bowel Sounds, Non Tender, Non Distended, Soft - Rectal Rectal Exam: Deferred - External Exam: Deferred Exam: Deferred - Extremities Extremities Exam: Normal Inspection - Back Back Exam: Normal Inspection - Neurological Neurological Exam: Alert, Oriented x 3, CN II-XII Intact, Moves All Extremities Equally Additional Neurological Exam Details: Tremor noted in her hands less than yesterday - Integumentary Additional Integumentary Exam Details: Few petechiae noted Assessment and Plan - Patient Problems (1) Alcohol withdrawal Current Visit: Yes Status: Acute Comment: She is on CIWA scale she is requiring still IV diazepam will add oral diazepam as a choice see whether we can switch her to by mouth. I think we'll cut back on her fluid. She looks very weak will ask PT and OT to work with her. (2) Alcohol intoxication Current Visit: Yes Status: Acute Comment: This is resolved Qualifiers: Complication of substance-induced condition: with unspecified complication Qualified Description: Alcoholic intoxication, with unspecified complication Qualifier Code(s): (F10.129) Alcohol abuse with intoxication , unspecified (3) Pancreatitis Current Visit: Yes Status: Acute Comment: This is resolved she is tolerating oral diet. Qualifiers: Chronicity: acute Pancreatitis type: alcohol induced Acute pancreatitis complication: no infection or necrosis Qualified Description: Alcohol-induced acute pancreatitis without infection or necrosis Qualifier Code(s): (K85.20) Alcohol induced acute pancreatitis without necrosis or infection (4) Hypokalemia Current Visit: Yes Status: Acute Comment: Potassium is lower today we'll add oral replacement. (5) Thrombocytopenia Current Visit: Yes Status: Acute Comment: Continue multivitamins. Repeat her labs tomorrow. (6) Elevated liver enzymes Current Visit: No Status: Acute Comment: Repeat enzymes tomorrow. (7) Hypoglycemia Current Visit: Yes Status: Acute Comment: This is resolved (8) Increased anion gap metabolic acidosis Current Visit: Yes Status: Acute Comment: This is resolved. We'll cut back on the fluid.
[2016-06-26] MEDS: D5-NS + 20mEq KCL 1,000 ML PRIMARY IV SCH ×2 (08:03→21:08)
--- NOTE | 2016-06-26 09:24 | DI ---
CT HEAD SCAN WITHOUT IV CONTRAST, 06/24/2016 5:05 PM : Clinical History: Confusion and recent fall Previous Exam: None at this facility. Scans are obtained from the foramen magnum to the vertex without IV contrast. The 4th, 3rd, and lateral ventricles are of normal size, shape, position, and contour. There are no a bnormal areas of increased or decreased density. There is diffuse age-related volume loss. There are no extracerebral mantles or shift of the midline structures. Bone window evaluation is nor mal. The paranasal sinuses are normal. Reading: Normal non-contrast CT head scan for age.
[2016-06-26] MEDS: NICOTINE 14 MG /DAY PATCH TRANSDERM SCH (09:26)
[2016-06-26] MEDS: MAGNESIUM OXIDE 400 MG TABLET PO SCH ×2 (09:27→21:37)
[2016-06-26] MEDS: POTASSIUM CHLORIDE 20 MEQ TAB PO SCH ×2 (09:27→21:37)
[2016-06-26] MEDS: FOLIC ACID 1 MG TABLET PO SCH (09:27)
[2016-06-26] MEDS: Thiamine Tab 100 MG TAB PO SCH (09:27)
[2016-06-26] MEDS: PANTOPRAZOLE 40 MG TABLET PO SCH (09:27)
[2016-06-26] MEDS: Hypromellose/Glycerin/PEG 400 Ophth Soln 15 ML DROPS EACH EYE SCH (09:49)
--- NOTE | 2016-06-26 15:38 | PT.PROG ---
Progress Note Progress Note: S. Patient stated that she didn't want to do much therapy this afternoon due to getting up recently. O. Patient performed seated exercises in the form of; heel toe raises, marches, long arc quads, pillow squeezes, clamshells, and sit to stands all x 10 bilaterally. Patient ambulated 5 feet to the bed where she was left with call light and alarm. A. Patient tolerated activity well, she continues to struggle with tremors and is fearful of falling. Patient would continue to benefit from skilled therapy to increase strength, mobility and endurance. P. Continue POC.
--- NOTE | 2016-06-26 17:28 | OT.PROG ---
Progress Note Progress Note: S" I am doing okay.' O: Pt seen from 1:10 to 1:40 with pt. completing bed mobility with use of bed rails R and L with mod A and mod vc's. Pt. moved from supine to sit with mod A and use of bed rails. Pt. then got to EOB and completed sit to stand transfer with mod A and mod vc's. Pt. then completed sit to stand transfer with mod A x1. Pt. completed weight shifts R and L with mod vc's and min A. Pt moved from stand to sit with mod A. Pt. then moved from EOB to supine with max A and mod vc's. A: Pt. sweating and very tremorous during session. Pt. stated that her pain was minimal during session and rating an 2/10. Pt. fatigued and low endurance by the end of the session. P: Continue POC. Aracely Carias OTD, OTR/L
[2016-06-26] MEDS: NORMAL SALINE 10 ML SYRINGE FLUSH IVP PRN ×3 (18:57→23:52)
[2016-06-26] MEDS ORDERED: DIAZEPAM 10 MG/2 ML (5 MG/1 ML) CARPUJECT IVP ONE (19:31)
[2016-06-27] MEDS: Diazepam Inj (ETOH withdrawal)10 MG/2 ML CARPUJECT IVP PRN ×2 (02:03→03:45)
[2016-06-27] MEDS: NORMAL SALINE 10 ML SYRINGE FLUSH IVP PRN ×2 (02:03→03:46)
[2016-06-27 06:14] LABS: BASOPHILS # (AUTO) 0.02 10*3/UL; BASOPHILS % (AUTO) 0.3 % (0-1); IMM GRAN % (AUTO) 0.2 % (0-5); IMM GRAN# (AUTO) 0.01 10*3/UL; MONOCYTES # (AUTO) 0.34 10*3/UL (0.3-0.8)
[2016-06-27 06:19] LABS: HEMATOCRIT 32.6 % (37.0-47.0); HEMOGLOBIN 10.7 g/dL (12.0-16.0); LYMPHOCYTES # (AUTO) 1.61 10*3/uL; LYMPHOCYTES % (AUTO) 26.3 % (10-50); MEAN CORPUSCULAR HEMOGLOBIN 33.6 PG (27-31); MEAN CORPUSCULAR HGB CONC 32.8 g/dL (33-37); MEAN PLATELET VOLUME 10.3 FL (7.4-12.2); MONOCYTES % (AUTO) 5.6 % (5-15); NEUTROPHILS # (AUTO) 4.08 10*3/UL; NEUTROPHILS % (AUTO) 66.6 % (50-80); RDW COEFFICIENT OF VARIATION 15.1 % (11.5-14.5); RED BLOOD COUNT 3.18 10^6/uL (4.20-5.40); WHITE BLOOD COUNT 6.12 10^3/uL (4.8-10.8)
[2016-06-27 06:21] LABS: PLATELET MORPHOLOGY COMMENT SEE COMMENTS (NORM)
[2016-06-27 06:23] LABS: ASPARTATE AMINO TRANSFERASE 134 IU/L (8-39); BILIRUBIN,TOTAL 1.3 mg/dL (0.3-1.2); BLOOD UREA NITROGEN 5 mg/dL (7-22); BUN/CREATININE RATIO 8.33 (6-20); CALCIUM 8.6 mg/dL (8.7-10.7); CHLORIDE 110 meq/L (98-112); CREATININE 0.6 mg/dL (0.50-1.20); EST GLOMERULAR FILTRATION > 60 (>60 ml/min/1.73m(2)); GLUCOSE 120 mg/dL (78-110); POTASSIUM 3.4 meq/L (3.8-5.2); SODIUM 142 meq/L (135-145); TOTAL PROTEIN 6.1 g/dL (6.1-8.0)
[2016-06-27] MEDS: POTASSIUM CHLORIDE 20 MEQ TAB PO SCH ×2 (08:29→20:39)
[2016-06-27] MEDS: FOLIC ACID 1 MG TABLET PO SCH (08:30)
[2016-06-27] MEDS: Multivitamin Tab 1 TAB PO SCH (08:30)
[2016-06-27] MEDS: Thiamine Tab 100 MG TAB PO SCH (08:30)
[2016-06-27] MEDS: MAGNESIUM OXIDE 400 MG TABLET PO SCH ×2 (08:30→20:39)
[2016-06-27] MEDS: PANTOPRAZOLE 40 MG TABLET PO SCH (08:30)
--- NOTE | 2016-06-27 08:30 | PDOC(PROG) ---
Date and Time of Service: 06/27/2016 8:28 AM Interval History: Subjective Patient feels better today compared to yesterday. She still having the shakes but not as bad. No visual or auditory hallucinations last night. Objective : Data - Labs CBC and BMP: 06/27/16 06:05 06/27/16 06:05 Labs - Last 24 Hours: Laboratory Results 06/27/16 Range/Units 06:05 WBC 6.12 (4.8-10.8) 10^3/uL RBC 3.18 L (4.20-5.40) 10^6/uL Hgb 10.7 L (12.0-16.0) g/dL Hct 32.6 L (37.0-47.0) % MCV 102.5 H (81-99) FL MCH 33.6 H (27-31) PG MCHC 32.8 L (33-37) g/dL RDW Std Deviation 55.6 H (39-50) fL RDW Coeff of Deshawn 15.1 H (11.5-14.5) % Plt Count 38 L (140-350) 10*3/uL MPV 10.3 (7.4-12.2) FL Immature Gran % (Auto) 0.2 (0-5) % Neut % (Auto) 66.6 (50-80) % Lymph % (Auto) 26.3 (10-50) % [place] % (Auto) 5.6 (5-15) % Eos % (Auto) 1.0 (0-8) % Baso % (Auto) 0.3 (0-1) % Immature Gran # (Auto) 0.01 10*3/UL Neut # (Auto) 4.08 10*3/UL Lymph # (Auto) 1.61 10*3/uL [place] # (Auto) 0.34 (0.3-0.8) 10*3/UL Eos # (Auto) 0.06 10*3/UL Baso # (Auto) 0.02 10*3/UL WBC Morphology Comment Normal morphology (NORM) Plt Morphology Comment See comments (NORM) RBC Morph Comment Normal morphology (NORM) Sodium 142 (135-145) meq/L Potassium 3.4 L (3.8-5.2) meq/L Chloride 110 (98-112) meq/L Carbon Dioxide 25 (23-33) meq/L Anion Gap 7 (5-20) BUN 5 L (7-22) mg/dL Creatinine 0.6 (0.50-1.20) mg/dL Estimated GFR > 60 (>60 ml/min/1.73m(2)) BUN/Creatinine Ratio 8.33 (6-20) Glucose 120 H (78-110) mg/dL Calculated Osmolality 291.0 (267-292) mOsm/kg Calcium 8.6 L (8.7-10.7) mg/dL Total Bilirubin 1.3 H (0.3-1.2) mg/dL AST 134 H (8-39) IU/L ALT 67 H (9-52) IU/L Alkaline Phosphatase 96 (38-126) IU/L Total Protein 6.1 (6.1-8.0) g/dL Albumin 3.2 L (3.5-4.8) g/dL Globulin 2.9 (2.50-4.10) g/dL Albumin/Globulin Ratio 1.10 L (1.3-2.0) mg/g Objective : Exam - General General Appearance: No Acute Distress, Cooperative - Head Head Exam: Normal Inspection - Eye Eye Exam: Normal Appearance - ENT ENT Exam: Normal Exam - Neck Neck Exam: Normal Inspection - Respiratory Respiratory Exam: Clear to Auscultation - Bilaterally - Cardiovascular Cardiovascular Exam: RRR - GI/Abdominal GI/Abdominal Exam: Normal Bowel Sounds, Non Tender, Non Distended, Soft - Rectal Rectal Exam: Deferred - External Exam: Deferred - Extremities Extremities Exam: Normal Inspection - Back Back Exam: Normal Inspection - Neurological Neurological Exam: Alert, Oriented x 3, CN II-XII Intact - Integumentary Additional Integumentary Exam Details: Rash lower extremities noted and petechiae noted in the left hand. Assessment and Plan - Patient Problems (1) Alcohol withdrawal Current Visit: Yes Status: Acute Comment: Continue the CIWA protocol, will try to use more the oral diazepam insetad of the IV. Continue PT and OT she is still weak. (2) Alcohol intoxication Current Visit: Yes Status: Acute Comment: This is resolved Qualifiers: Complication of substance-induced condition: with unspecified complication Qualified Description: Alcoholic intoxication, with unspecified complication Qualifier Code(s): (F10.129) Alcohol abuse with intoxication , unspecified (3) Pancreatitis Current Visit: Yes Status: Acute Comment: This is resolved, will stop the fluid Qualifiers: Chronicity: acute Pancreatitis type: alcohol induced Acute pancreatitis complication: no infection or necrosis Qualified Description: Alcohol-induced acute pancreatitis without infection or necrosis Qualifier Code(s): (K85.20) Alcohol induced acute pancreatitis without necrosis or infection (4) Hypokalemia Current Visit: Yes Status: Acute Comment: Continue oral replacement (5) Thrombocytopenia Current Visit: Yes Status: Acute Comment: Platelets are lower continue folic acid and multivitamins, repeat tomorrow (6) Elevated liver enzymes Current Visit: No Status: Acute Comment: This is stable repeat tomorrow (7) Hypoglycemia Current Visit: Yes Status: Acute Comment: Resolved (8) Increased anion gap metabolic acidosis Current Visit: Yes Status: Acute Comment: This is resolved
[2016-06-27] MEDS: NICOTINE 21 MG /DAY PATCH TRANSDERM SCH (08:34)
[2016-06-27] MEDS: D5-NS + 20mEq KCL 1,000 ML PRIMARY IV SCH (10:14)
--- NOTE | 2016-06-27 11:31 | PT.PROG ---
Progress Note Progress Note: S. Patient stated that she is feeling much better compared to yesterday. O. Patient ambulated 50 feet in the patrick, then performed sit to stands x 5 seated marches, long arc quads, heel toe raises all x 10 bilaterally. Patient was left with OT for further therapy. A. Patient tolerated ambulation fair this morning, she appears to struggle with the walker, single point cane may be more beneficial for patient at this time. Patient would continue to benefit from skilled therapy at this time to increase strength, mobility and endurance at this time. P. continue POC, stair training, cane training 2/7 PM.
[2016-06-27] MEDS: Hypromellose/Glycerin/PEG 400 Ophth Soln 15 ML DROPS EACH EYE SCH (12:57)
[2016-06-27 13:51] LABS: HCV AB SCREEN Negative (Negative); HEPATITIS B SURFACE AG Negative (Negative)
--- NOTE | 2016-06-27 14:42 | PTI REPORT ---
Thank you for the referral of Denise Tan. She was seen on 06/26/16 for an inpatient evaluation secondary to weakness. SUBJECTIVE: The patient is a 50-year-old female who was admitted to the hospital following a fall onto her left shoulder and left leg along with alcohol abuse. The patient reports subjective claims of feeling weak. She states she has been unable to ambulate since entering the hospital due to tremors and weakness. The patient states that she lives in [place] with her and children. She has multiple stairs in her home and prior to her latest admittance to the hospital she was able to get around without any assistance and was able to care for herself. 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 The patient states that she has been dealing with a lot of pain due to a cervical spine fusion that she had back in October of 2015. The patient states at the time of the fusion she also had a C7 fracture. She reports that she no longer has numbness and tingling into her upper extremities but continues to have pain. She states that her drinking began following her use of narcotics for her pain for her cervical spine fusion. The patient states that her heavy drinking landed her in the ER in January of 2016. She states she was sober for one month and then relapsed in February of 2016. The patient states that she went to [facility] in [place] and she was sober from February until the end of April. She states that she started drinking again and has been having issues with that. She states that she has no pain and her goals for therapy are to regain her strength and balance. PAST MEDICAL HISTORY: Past medical history can be found in the patient's medical record. OBJECTIVE FINDINGS: General observations: The patient was oriented to setting upon the therapist's arrival. The patient does have an IV in place. The patient demonstrates marked tremors in her upper and lower extremities when she is in a seated position. Pain: The patient states she has 0/10 pain. Bed mobility: The patient was able to move from a supine to seated position with stand by assist x1 for safety. The patient was able to independently transfer from seated to supine and was able to independently scoot in bed. Balance: The patient demonstrates fair to good seated balance and is able to sit edge of bed. Strength: The patient has 3/5 bilateral hip strength and 4/5 bilateral knee and ankle strength. Transfers: The patient was able to perform a seated to stand transfer with contact guard assist x1. The patient was unable to complete stand up without bracing herself with lower extremities on the bed. She did try standing with a walker in front and the patient did do better with hand hold assist x2. She still leaned backwards toward the bed and did have the tremors which made it difficult for her to stand for long periods of time. Endurance: The patient does have decreased endurance and is only able to stand for approximately 30 seconds before requiring a rest break and she was only able to perform three sit to stand transfers before returning to bed. ASSESSMENT: The patient has fair to good rehab potential. Problem List: Decreased endurance Decreased activity tolerance Weakness Poor balance Short-Term Goals: To be met by discharge from inpatient: Patient will be able to perform all transfers safely and independently. Patient will be able to ambulate at least 200 feet with appropriate assistive device as needed and do so safely. Patient will be able to stand x5 minutes and perform activities to demonstrate improved balance and endurance. Long-Term Goals: To be met following discharge from inpatient: Patient may be seen by outpatient physical therapy if deemed necessary upon time of discharge. TREATMENT PLAN: Patient will be seen B.I.D during the week and one time per day over the weekend as an inpatient for general strengthening, ambulation, and balance. INITIAL TREATMENT: Treatment today consisted of the initial evaluation followed by one unit of functional activity with the patient performing transfers from bed to stand and sit to stand transfers. ISA
--- NOTE | 2016-06-27 15:28 | OTI REPORT ---
Thank you for the referral of Denise Tan. She was seen on 06/26/16 for an occupational therapy inpatient evaluation secondary to generalized weakness. SUBJECTIVE: The patient is a 50-year-old female admitted to [facility] secondary to an alcohol related incident with resultant decline in balance, safety, strength, mobility, and transfers. The patient is unable to care for herself. The patient currently requires extensive assistance for most of her ADLs. 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 Her does the cooking and cleaning and she does the grocery shopping. Prior to her illness the patient was independent within the community and was able to care for herself. PAST MEDICAL HISTORY: Past medical history can be found in the patient's medical record. OBJECTIVE FINDINGS: Activities of daily living: Grooming: The patient requires max assistance for grooming in standing including face washing, teeth brushing, and hair combing. Toileting: The patient requires total assistance including brief up, brief down , and cleansing self. The patient has bilateral upper extremity intention tremors. Toilet transfer: The patient requires mod assist x1 with the use of a grab bar. Commode transfer is mod assist x1. Shower transfer: The patient would require max assist secondary to lower extremity weakness and decreased balance. Showering/Bathing: The patient would require total assistance secondary to decreased functional use of upper extremities, decreased sitting balance, and decreased core stability. Upper extremity dressing: The patient requires mod assist and mod verbal cues edge of bed. Lower extremity dressing: The patient requires total assistance for initiating threading, pulling up to knees, and pulling up to waist (bilateral lower extremities collapse with activity greater than 30 seconds due to weakness and DTs). Range of motion: Upper extremity passive motion is greater than active motion secondary to strength deficits. Strength: Upper extremity strength is 2-/5. ASSESSMENT: The patient is pleasant and cooperative. She does have insight into her deficits and has volunteered to participate in .... Problem List: Overall weakness Decreased endurance/activity tolerance Decreased functional use of UEs and LEs Decreased transfers Decreased balance Decreased mobility Specialized discharge planning is needed for alcoholism Education is needed on use of adaptive equipment Home evaluation PRN Short-Term Goals: To be met by discharge from inpatient: Patient will complete basic dressing task with UEs and LEs with set up assistance with the use of AE PRN. Patient will increase activity tolerance/endurance to 12 minutes of sustained activity in order to complete her BADL routine with minimal verbal cues for safety. Patient will increase upper body strength to 4/5 throughout her BUEs to assist with ADLs and transfers. Long-Term Goals: To be met following discharge from inpatient: Patient will increase functional activity tolerance, safety, and strength sufficient to return home to her prior level of function. TREATMENT PLAN: Patient will be seen B.I.D during the week and one time per day over the weekend as an inpatient to address the above goals and objectives. INITIAL TREATMENT: Treatment today consisted of the initial evaluation activities only. ISA
--- NOTE | 2016-06-27 17:00 | OT.PROG ---
Progress Note Progress Note: S: pt stated that she was feeling better. reports having neck surgery O: pt was seen in her room in the a.m. AFter PT finished up treatment pt sat in chair and completed UE AROM in all ranges with BUE. Pt then completed x10 to stands with CGA for safety. pt was left upright in chair with alarm on . A: pt tolerated more activities today and would continue to benefit from therapy to increase overall activity tolerance. P: Continue per plan of care.
--- NOTE | 2016-06-27 17:05 | PT.PROG ---
Progress Note Progress Note: S. Patient stated that she continues to feel better. Patient agreed to go to the the therapy gym this afternoon. O. Patient ambulated 70 feet to the wheelchair and was wheeled to the therapy gym where she used the nu-step x 10 minutes then performed balance exercises x 5 minutes. Patient ambulated 30 feet with a single point cane. Patient was left with OT for further therapy. A. Patient struggles with balance, she requires verbal cues to stay on task. Patient would continue to benefit from skilled therapy to increase balance and endurance. P. Continue POC.
[2016-06-27] MEDS ORDERED: IBUPROFEN 400 MG TABLET PO ONE (23:17)
[2016-06-28 05:00] VITALS: RESP 20
[2016-06-28 06:37] LABS: BASOPHILS # (AUTO) 0.02 10*3/UL; BASOPHILS % (AUTO) 0.5 % (0-1); EOSINOPHILS % (AUTO) 4.6 % (0-8); HEMATOCRIT 32.7 % (37.0-47.0); HEMOGLOBIN 10.4 g/dL (12.0-16.0); IMM GRAN % (AUTO) 0 % (0-5); IMM GRAN# (AUTO) 0 10*3/UL; LYMPHOCYTES # (AUTO) 1.46 10*3/uL; LYMPHOCYTES % (AUTO) 37.2 % (10-50); MEAN CORPUSCULAR HGB CONC 31.8 g/dL (33-37); MEAN PLATELET VOLUME 10.6 FL (7.4-12.2); MONOCYTES # (AUTO) 0.34 10*3/UL (0.3-0.8); MONOCYTES % (AUTO) 8.7 % (5-15); NEUTROPHILS # (AUTO) 1.93 10*3/UL; RDW COEFFICIENT OF VARIATION 14.9 % (11.5-14.5); RED BLOOD COUNT 3.15 10^6/uL (4.20-5.40); WHITE BLOOD COUNT 3.93 10^3/uL (4.8-10.8)
[2016-06-28 06:41] LABS: PLATELET MORPHOLOGY COMMENT NORMAL MORPHOLOGY (NORM)
[2016-06-28 06:57] LABS: ASPARTATE AMINO TRANSFERASE 80 IU/L (8-39); BILIRUBIN,TOTAL 1.1 mg/dL (0.3-1.2); BLOOD UREA NITROGEN 10 mg/dL (7-22); BUN/CREATININE RATIO 16.66 (6-20); CALCIUM 8.8 mg/dL (8.7-10.7); CHLORIDE 109 meq/L (98-112); CREATININE 0.6 mg/dL (0.50-1.20); EST GLOMERULAR FILTRATION > 60 (>60 ml/min/1.73m(2)); GLUCOSE 85 mg/dL (78-110); POTASSIUM 3.4 meq/L (3.8-5.2); SODIUM 141 meq/L (135-145); TOTAL PROTEIN 6.1 g/dL (6.1-8.0)
[2016-06-28] MEDS: PANTOPRAZOLE 40 MG TABLET PO SCH (08:55)
--- NOTE | 2016-06-28 09:10 | PDOC(PROG) ---
Date and Time of Service: 06/28/2016 9:10 AM Interval History: Subjective He said she is feeling better, shakes are much better than before. She said her strength and balance seems to be better. Objective : Data - Labs CBC and BMP: 06/28/16 06:00 06/28/16 06:00 Labs - Last 24 Hours: Laboratory Results 06/25/16 06/26/16 06/28/16 Range/Units 06:24 06:05 06:00 WBC 3.93 L (4.8-10.8) 10^3/uL RBC 3.15 L (4.20-5.40) 10^6/uL Hgb 10.4 L (12.0-16.0) g/dL Hct 32.7 L (37.0-47.0) % MCV 103.8 H (81-99) FL MCH 33.0 H (27-31) PG MCHC 31.8 L (33-37) g/dL RDW Std Deviation 54.7 H (39-50) fL RDW Coeff of Deshawn 14.9 H (11.5-14.5) % Plt Count 49 L (140-350) 10*3/uL MPV 10.6 (7.4-12.2) FL Immature Gran % (Auto) 0 (0-5) % Neut % (Auto) 49.0 L (50-80) % Lymph % (Auto) 37.2 (10-50) % [place] % (Auto) 8.7 (5-15) % Eos % (Auto) 4.6 (0-8) % Baso % (Auto) 0.5 (0-1) % Immature Gran # (Auto) 0 10*3/UL Neut # (Auto) 1.93 10*3/UL Lymph # (Auto) 1.46 10*3/uL [place] # (Auto) 0.34 (0.3-0.8) 10*3/UL Eos # (Auto) 0.18 10*3/UL Baso # (Auto) 0.02 10*3/UL WBC Morphology Comment Normal morphology (NORM) Plt Morphology Comment Normal morphology (NORM) RBC Morph Comment Normal morphology (NORM) Sodium 141 (135-145) meq/L Potassium 3.4 L (3.8-5.2) meq/L Chloride 109 (98-112) meq/L Carbon Dioxide 25 (23-33) meq/L Anion Gap 7 (5-20) BUN 10 (7-22) mg/dL Creatinine 0.6 (0.50-1.20) mg/dL Estimated GFR > 60 (>60 ml/min/1.73m(2)) BUN/Creatinine Ratio 16.66 (6-20) Glucose 85 (78-110) mg/dL Calculated Osmolality 289.0 (267-292) mOsm/kg Calcium 8.8 (8.7-10.7) mg/dL Total Bilirubin 1.1 (0.3-1.2) mg/dL AST 80 H (8-39) IU/L ALT 60 H (9-52) IU/L Alkaline Phosphatase 89 (38-126) IU/L Total Protein 6.1 (6.1-8.0) g/dL Albumin 3.2 L (3.5-4.8) g/dL Globulin 2.9 (2.50-4.10) g/dL Albumin/Globulin Ratio 1.10 L (1.3-2.0) mg/g Vitamin B12 653 (180 - 914) ng/L Folate >20.0 (>=4.0) mcg/L Hep Bs Antigen Negative (Negative) Hepatitis C Ab Screen Negative (Negative) HCV RNA Quant (PCR) Not Reportable Objective : Exam - General General Appearance: No Acute Distress, Cooperative - Head Head Exam: Normal Inspection, Atraumatic - Eye Eye Exam: Normal Appearance - ENT ENT Exam: Normal Exam - Neck Neck Exam: Normal Inspection - Respiratory Respiratory Exam: Clear to Auscultation - Bilaterally - Cardiovascular Cardiovascular Exam: RRR - GI/Abdominal GI/Abdominal Exam: Normal Bowel Sounds, Non Tender, Non Distended, Soft - Rectal Rectal Exam: Deferred - External Exam: Deferred - Extremities Extremities Exam: Normal Inspection - Back Back Exam: Normal Inspection - Neurological Neurological Exam: Alert, Oriented x 3, CN II-XII Intact, Moves All Extremities Equally Additional Neurological Exam Details: Tremor improved compared to before Assessment and Plan - Patient Problems (1) Alcohol withdrawal Status: Acute Comment: Much improved compared to before. I'll speak with the PT and OT today and if they think she is safe for discharge probably will discharge her later in the afternoon (2) Alcohol intoxication Status: Acute Comment: This is resolved Qualifiers: Complication of substance-induced condition: with unspecified complication Qualified Description: Alcoholic intoxication, with unspecified complication Qualifier Code(s): (F10.129) Alcohol abuse with intoxication , unspecified (3) Pancreatitis Status: Acute Comment: Resolved Qualifiers: Chronicity: acute Pancreatitis type: alcohol induced Acute pancreatitis complication: no infection or necrosis Qualified Description: Alcohol-induced acute pancreatitis without infection or necrosis Qualifier Code(s): (K85.20) Alcohol induced acute pancreatitis without necrosis or infection (4) Hypokalemia Status: Acute Comment: Continue replacement (5) Thrombocytopenia Status: Acute Comment: Improving continue multivitamins (6) Elevated liver enzymes Status: Acute Comment: Serology were negative likely secondary to alcohol (7) Hypoglycemia Status: Acute Comment: Resolved (8) Increased anion gap metabolic acidosis Status: Acute Comment: Resolved
[2016-06-28] MEDS: NICOTINE 21 MG /DAY PATCH TRANSDERM SCH (09:48)
[2016-06-28] MEDS: MAGNESIUM OXIDE 400 MG TABLET PO SCH (09:49)
[2016-06-28] MEDS: FOLIC ACID 1 MG TABLET PO SCH (09:49)
[2016-06-28] MEDS: Thiamine Tab 100 MG TAB PO SCH (09:49)
[2016-06-28] MEDS: Multivitamin Tab 1 TAB PO SCH (09:49)
[2016-06-28] MEDS: POTASSIUM CHLORIDE 20 MEQ TAB PO SCH (09:50)
[2016-06-28 10:00] VITALS: TEMP 97.5
[2016-06-28] MEDS: Hypromellose/Glycerin/PEG 400 Ophth Soln 15 ML DROPS EACH EYE SCH (10:06)
--- NOTE | 2016-06-28 11:55 | PT.PROG ---
Progress Note Progress Note: S. Patient stated that she is feeling better this morning. O. Patient ambulated 300 feet around the nurses station then ascended and descended 12 stairs she was left in bed with hospital Sap Bw Developer. A. Patient continues to struggle with tremors and was fearful of stair training however she was able to perform stair training. She has met all goals at this time. P. Continue POC.
--- NOTE | 2016-06-28 15:36 | DCSUMMARY ---
Hospitalization Summary Admit Date: 06/24/16 Discharge Date: 06/28/16 Hospital Course: Discharge diagnosis 1. Alcohol intoxication. 2. Alcohol withdrawal resolved 3. Mild pancreatitis 4. Thrombocytopenia need follow-up 5. Hypokalemia 6. History neck of surgery 7. Elevated LFTs secondary to alcoholism Hospital course This is a 50 years old female with medical history significant for history of alcohol abuse in the past, who was brought in by to the emergency department when he found her at home altered sitting in the garage. He thought that she may have fallen and she was slurring some of her words and because of that she was brought to the hospital her alcohol level was 466. She complained from nausea and vomiting and back pain on the day before admission, her lipase was mildly at 301. The patient been drinking a pint of vodka per day. The patient has been doing intensive outpatient therapy with [facility] since around February. But she started drinking again over the holidays. She is gone through withdrawal before at home but never been admitted to the hospital for it. Patient was admitted to the hospital was provided with supportive care, I saw her the next day we started her on clear liquid and then advanced her diet. However she was very weak and then she started into withdrawal so she was started on CIWA protocol. gradually there was improvement in her withdrawal symptoms. She Started physical therapy and she regained her strength gradually. She did have thrombocytopenia and I think that is related to the alcohol. We did start her on multivitamins. She did have also increased anion gap metabolic acidosis likely secondary to ketoacidosis when she came in, and that's resolved. On the day of discharge she was doing better so we thought she could discharge home she was seen by [facility] and she will follow up with them and also with [facility] as an outpatient. I did tell her that she need follow-up with PCP and have repeat testing to check on her platelets and potassium level. I did advise her not to drink while taking the Valium which we gave her a few pills of in case she has some recurrence of withdrawal symptoms. She did have also some hypoglycemia the next day when she came in and that's resolved with the fluid supplementation and later on when she starts eating. Laboratory Results 06/24/16 06/24/16 06/25/16 Range/Units 17:27 23:10 06:24 WBC 4.06 L 4.83 (4.8-10.8) 10^3/uL RBC 4.15 L 3.31 L (4.20-5.40) 10^6/uL Hgb 13.8 11.1 L (12.0-16.0) g/dL Hct 40.7 33.8 L (37.0-47.0) % MCV 98.1 102.1 H (81-99) FL MCH 33.3 H 33.5 H (27-31) PG MCHC 33.9 32.8 L (33-37) g/dL RDW Std Deviation 54.5 H 56.2 H (39-50) fL RDW Coeff of Deshawn 15.4 H 15.4 H (11.5-14.5) % Plt Count 90 L 64 L (140-350) 10*3/uL MPV 8.3 8.9 (7.4-12.2) FL Immature Gran % (Auto) 0.2 0.2 (0-5) % Neut % (Auto) 61.8 70.7 (50-80) % Lymph % (Auto) 29.1 20.9 (10-50) % [place] % (Auto) 6.2 6.6 (5-15) % Eos % (Auto) 0 0.4 (0-8) % Baso % (Auto) 2.7 H 1.2 H (0-1) % Immature Gran # (Auto) 0.01 0.01 10*3/UL Neut # (Auto) 2.51 3.41 10*3/UL Lymph # (Auto) 1.18 1.01 10*3/uL [place] # (Auto) 0.25 L 0.32 (0.3-0.8) 10*3/UL Eos # (Auto) 0 0.02 10*3/UL Baso # (Auto) 0.11 0.06 10*3/UL WBC Morphology Comment Normal morphology Normal morphology (NORM) Plt Morphology Comment See comments Normal morphology (NORM) RBC Morph Comment See comments Normal morphology (NORM) PT 10.9 11.0 (9.7-11.4) secs INR 1.06 1.07 (0.00-5.90) N/A Sodium 147 H 145 (135-145) meq/L Potassium 3.4 L 3.7 L (3.8-5.2) meq/L Chloride 103 108 (98-112) meq/L Carbon Dioxide 25 18 L (23-33) meq/L Anion Gap 19 19 (5-20) BUN 9 7 (7-22) mg/dL Creatinine 0.6 0.6 (0.50-1.20) mg/dL Estimated GFR > 60 > 60 (>60 ml/min/1.73m(2)) BUN/Creatinine Ratio 15.00 11.66 (6-20) Glucose 75 L 40 L* (78-110) mg/dL Calculated Osmolality 301.0 H 294.0 H (267-292) mOsm/kg Calcium 8.2 L 6.9 L (8.7-10.7) mg/dL Magnesium 1.8 2.0 (1.6-2.4) mg/dL Total Bilirubin 0.7 0.9 (0.3-1.2) mg/dL AST 192 H 158 H (8-39) IU/L ALT 74 H 58 H (9-52) IU/L Alkaline Phosphatase 117 97 (38-126) IU/L Ammonia < 9 L (9.0-33.0) UMOL/L Troponin I < 0.012 (< 0.040) ng/mL Total Protein 7.0 6.2 (6.1-8.0) g/dL Albumin 4.0 3.4 L (3.5-4.8) g/dL Globulin 3.0 2.8 (2.50-4.10) g/dL Albumin/Globulin Ratio 1.30 1.20 L (1.3-2.0) mg/g Amylase 81 (30-110) U/L Lipase 301 H 210 (23-300) IU/L Vitamin B12 653 (180 - 914) ng/L Folate >20.0 (>=4.0) mcg/L Ur Collection Type Clean catch urine U Specif Grav (Refrac) 1.015 Urine Opiates Screen Negative (NEG) Ur Buprenorphine Negative (NEG) Ur Oxycodone Screen Negative (NEG) Urine Methadone Screen Negative (NEG) Ur Propoxyphene Screen Negative (NEG) Barbiturate Screen Negative (NEG) U Tricyclic Antidepress Negative (NEG) Phencyclidine Screen Negative (NEG) Amphetamines Screen Negative (NEG) U Methamphetamines Scrn Negative (NEG) Benzodiazepines Screen Negative (NEG) Cocaine Screen Negative (NEG) U Marijuana (THC) Screen Negative (NEG) Serum Alcohol 466 H* (0-10) mg/dL Hep Bs Antigen (Negative) Hepatitis C Ab Screen (Negative) HCV RNA Quant (PCR) 06/26/16 06/27/16 06/28/16 Range/Units 06:05 06:05 06:00 WBC 4.72 L 6.12 3.93 L (4.8-10.8) 10^3/uL RBC 3.70 L 3.18 L 3.15 L (4.20-5.40) 10^6/uL Hgb 12.3 10.7 L 10.4 L (12.0-16.0) g/dL Hct 37.2 32.6 L 32.7 L (37.0-47.0) % MCV 100.5 H 102.5 H 103.8 H (81-99) FL MCH 33.2 H 33.6 H 33.0 H (27-31) PG MCHC 33.1 32.8 L 31.8 L (33-37) g/dL RDW Std Deviation 55.3 H 55.6 H 54.7 H (39-50) fL RDW Coeff of Deshawn 15.3 H 15.1 H 14.9 H (11.5-14.5) % Plt Count 55 L 38 L 49 L (140-350) 10*3/uL MPV 9.4 10.3 10.6 (7.4-12.2) FL Immature Gran % (Auto) 0.2 0.2 0 (0-5) % Neut % (Auto) 56.2 66.6 49.0 L (50-80) % Lymph % (Auto) 32.6 26.3 37.2 (10-50) % [place] % (Auto) 9.1 5.6 8.7 (5-15) % Eos % (Auto) 1.1 1.0 4.6 (0-8) % Baso % (Auto) 0.8 0.3 0.5 (0-1) % Immature Gran # (Auto) 0.01 0.01 0 10*3/UL Neut # (Auto) 2.65 4.08 1.93 10*3/UL Lymph # (Auto) 1.54 1.61 1.46 10*3/uL [place] # (Auto) 0.43 0.34 0.34 (0.3-0.8) 10*3/UL Eos # (Auto) 0.05 0.06 0.18 10*3/UL Baso # (Auto) 0.04 0.02 0.02 10*3/UL WBC Morphology Comment Normal morphology Normal morphology Normal morphology (NORM) Plt Morphology Comment Normal morphology See comments Normal morphology ( NORM) RBC Morph Comment Normal morphology Normal morphology Normal morphology ( NORM) PT (9.7-11.4) secs INR (0.00-5.90) N/A Sodium 141 142 141 (135-145) meq/L Potassium 3.1 L 3.4 L 3.4 L (3.8-5.2) meq/L Chloride 106 110 109 (98-112) meq/L Carbon Dioxide 26 25 25 (23-33) meq/L Anion Gap 9 7 7 (5-20) BUN 4 L 5 L 10 (7-22) mg/dL Creatinine 0.6 0.6 0.6 (0.50-1.20) mg/dL Estimated GFR > 60 > 60 > 60 (>60 ml/min/1.73m(2)) BUN/Creatinine Ratio 6.66 8.33 16.66 (6-20) Glucose 120 H 120 H 85 (78-110) mg/dL Calculated Osmolality 289.0 291.0 289.0 (267-292) mOsm/kg Calcium 8.2 L 8.6 L 8.8 (8.7-10.7) mg/dL Magnesium (1.6-2.4) mg/dL Total Bilirubin 1.3 H 1.3 H 1.1 (0.3-1.2) mg/dL AST 125 H 134 H 80 H (8-39) IU/L ALT 63 H 67 H 60 H (9-52) IU/L Alkaline Phosphatase 116 96 89 (38-126) IU/L Ammonia (9.0-33.0) UMOL/L Troponin I (< 0.040) ng/mL Total Protein 6.6 6.1 6.1 (6.1-8.0) g/dL Albumin 3.6 3.2 L 3.2 L (3.5-4.8) g/dL Globulin 3.0 2.9 2.9 (2.50-4.10) g/dL Albumin/Globulin Ratio 1.20 L 1.10 L 1.10 L (1.3-2.0) mg/g Amylase (30-110) U/L Lipase (23-300) IU/L Vitamin B12 (180 - 914) ng/L Folate (>=4.0) mcg/L Ur Collection Type U Specif Grav (Refrac) Urine Opiates Screen (NEG) Ur Buprenorphine (NEG) Ur Oxycodone Screen (NEG) Urine Methadone Screen (NEG) Ur Propoxyphene Screen (NEG) Barbiturate Screen (NEG) U Tricyclic Antidepress (NEG) Phencyclidine Screen (NEG) Amphetamines Screen (NEG) U Methamphetamines Scrn (NEG) Benzodiazepines Screen (NEG) Cocaine Screen (NEG) U Marijuana (THC) Screen (NEG) Serum Alcohol (0-10) mg/dL Hep Bs Antigen Negative (Negative) Hepatitis C Ab Screen Negative (Negative) HCV RNA Quant (PCR) Not Reportable Discharge instruction Diet regular Activity as tolerated Medications Home Medications Medication Instructions Recorded Confirmed Type Diazepam 5 mg PO BID PRN #6 tab 06/28/16 Rx Folic Acid 1 mg PO DAILY #10 tab 06/28/16 Rx Magnesium Oxide [Mag-Ox] 400 mg PO BID #20 tab 06/28/16 Rx Multivitamin Tab [Thera Tab] 1 tab PO DAILY #30 tab 06/28/16 Rx Potassium Chloride [Klor-Con] 20 meq PO BID #10 tab 06/28/16 Rx Follow-up with PCP in 1-2 weeks Condition at discharge was stable for discharge Exam - Vitals Vital Signs: Vital Signs Temperature 97.5 F Temperature Source Oral Pulse Rate [Apical] 90 Pulse Rate [Pulse Oximeter] 99 Pulse Rate 99 Respiratory Rate 20 Blood Pressure [Right Arm] 108/58 Blood Pressure [Left Arm] 117/86 Blood Pressure 108/58 Pulse Ox 99 Oxygen Delivery Method Room Air Height 5 ft 4 in Weight 147 lb 11.214 oz Patient Problems - Patient Problem List (1) Alcohol withdrawal Status: Acute (2) Alcohol intoxication Status: Acute Qualifiers: Complication of substance-induced condition: with unspecified complication Qualified Description: Alcoholic intoxication, with unspecified complication Qualifier Code(s): (F10.129) Alcohol abuse with intoxication , unspecified (3) Pancreatitis Status: Acute Qualifiers: Chronicity: acute Pancreatitis type: alcohol induced Acute pancreatitis complication: no infection or necrosis Qualified Description: Alcohol-induced acute pancreatitis without infection or necrosis Qualifier Code(s): (K85.20) Alcohol induced acute pancreatitis without necrosis or infection (4) Hypokalemia Status: Acute (5) Thrombocytopenia Status: Acute (6) Elevated liver enzymes Status: Acute (7) Hypoglycemia Status: Acute (8) Increased anion gap metabolic acidosis Status: Acute
--- NOTE | 2016-06-29 10:27 | OT PM DAY ---
Diagnosis : Weakness PM - Occupational Therapy S: The patient was seen in her room and she agreed to go down to therapy. O: The patient was in her chair upon the therapist's arrival. She transferred approximately 30 feet with walker before being transferred the rest of the way downstairs via wheelchair. The patient completed upper extremity exercises with two pounds in shoulder press, biceps flexion, and shoulder flexion. She also completed some balance activities with contact guard assist for safety. She completed balloon volleyball using her left and right upper extremities and we also played catch with a ball. The patient caught the ball 10x while standing still. She then completed a dynamic balance activity, stepping with left and right x10. The patient was returned to her room; per her request she was left in her chair. Chair alarm was placed on the patient for safety. A: The patient would continue to benefit from therapy to increase her overall strength and activity tolerance. We will continue to monitor and complete balance activities to improve function. P: Continue seeing patient BID during the week and one time per day over the weekend per plan of care. ISA
== END 2016-06-28 11:30 | disposition home or self-care (01) | DRG 813 ==
LOC: ER 16:45 → MED/SURG 18:57
PROVIDERS: ADMIT Family Medicine; ATTEND Family Medicine
DX: D69.6 Thrombocytopenia, unspecified (principal); K86.0 Alcohol-induced chronic pancreatitis; E87.2 Acidosis; F10.129 Alcohol abuse with intoxication, unspecified; F10.10 Alcohol abuse, uncomplicated; E87.6 Hypokalemia; R94.5 Abnormal results of liver function studies; E16.2 Hypoglycemia, unspecified; R41.82 Altered mental status, unspecified
CPT/HCPCS: 36415; 70450; 71020; 73030; 80053; 80305; 80320; 82140; 82150; 82607; 82746; 82948; 83690; 83735; 84484; 85025; 85610; 86803; 87340; 90791; 93005; 93010; 94761; 96365; 96375; 97110; 97162; 97165; 97530; 97535; 99285; J2405; J3360; J3411; J3475; J3480; J3490; J7030